=== PATIENT | male | born 1965 | race Caucasian/White ===

== ENCOUNTER → 2019-06-02 | Outpatient (CLI) | payer OTHER ==
--- NOTE | 2019-06-02 15:19 | RAD ---
Bilateral inguinal and paraumbilical ultrasound without comparison for bilateral groin pain, lump at the umbilicus. TECHNIQUE AND FINDINGS: Real-time grayscale ultrasound evaluation of the areas of interest was performed. Imaging was performed at rest and during Valsalva. No inguinal hernias are identified on either side. At the area near the umbilicus, there is 1.5 cm shadowing soft tissue density, which may represent a small nonincarcerated hernia or focal area of mild rectus diastases. IMPRESSION: 1. No sonographically discernible inguinal hernias. 2. Possible 1.5 cm small periumbilical hernia. Electronically signed by: Ray Rendon MD (06/02/2019 3:16 PM) [id number]
== END | disposition home or self-care (01) ==
LOC: US 12:50
PROVIDERS: ATTEND Surgery
DX: R10.30 Lower abdominal pain, unspecified (principal)
CPT/HCPCS: 76882

== ENCOUNTER → 2020-06-11 | Outpatient (CLI) | payer OTHER ==
[~2020-06-11] MED LIST: IOHEXOL 240 MG/ML 50ML VIAL. ONE; IOHEXOL 240 MG/ML 50ML VIAL. PO ONE; IOHEXOL 300 MG/ML 75 ML VIAL. IV ONE
--- NOTE | 2020-06-11 16:19 | RAD ---
EXAM: CT Abdomen and Pelvis with IV contrast CLINICAL HISTORY: LUQ ABD PAIN, RIGHT FLANK, HX INGUINAL AND UMBILLICAL HERNIA COMPARISON: none TECHNIQUE: Helical CT of the abdomen and pelvis was performed following the administration of IV cont rast. Axial, coronal and sagittal reformatted images were generated. ---PQRS compliance statement - One or more of the following individualized dose reduction techniques were utilized for this study: 1. Automated exposure control 2. Adjustment of the mA and/or kV according to patient size 3. Use of iterative reconstruction technique--- FINDINGS: Lower chest: Lung bases are clear Abdomen and pelvis: Hepatic hypoattenuation, likely fatty liver. Gallbladder is normal. Spleen is borderline enlarged ibeth suring 12.7 cm in length. No biliary ductal dilatation. Pancreas is unremarkable. Symmetric nephrogra ms. No focal renal lesion. No hydronephrosis. No hydroureter. Glands are unremarkable. No hydronephrosis or hydroureter. Bladder is grossly unremarkable. Appendix is normal. Moderate colonic stool content is seen. No small or large bowel dilatation. No pedro wel obstruction. Bilateral fat-containing inguinal hernias are seen. Surgical clips in the right inguinal canal region . Trace fat-containing periumbilical hernia is seen. No significant inflammatory change or fluid at t he above-mentioned hernias. Aorta is normal in caliber. Intermittent this chronic calcifications are seen. No abdominal or pelvic ascites. No abdominal or pelvic lymphadenopathy although a few mildly prominent retroperitoneal lymp h nodes are seen. Bones: Bilateral L5 pars defects are seen with grade 1 anterolisthesis of L5 on S1. Mild hip joint de generative changes and degenerative changes of spine are seen. IMPRESSION: 1. Hepatic hypoattenuation, likely fatty liver. 2. Bilateral fat-containing inguinal hernias and trace fat-containing periumbilical hernia is seen w ithout associated inflammatory change or fluid collections. 3. Spleen is borderline enlarged measuring 12.7 cm in length. Electronically signed by: Viktor Land MD (06/11/2020 4:16 PM) [facility]
== END ==
LOC: CT 10:05
PROVIDERS: ATTEND Emergency Medicine
DX: K40.20 Bilateral inguinal hernia, without obstruction or gangrene, not specified as recurrent (principal); R16.1 Splenomegaly, not elsewhere classified; I70.0 Atherosclerosis of aorta
CPT/HCPCS: 74177; Q9967